=== PATIENT | female | born 1985 | race Caucasian/White ===

== ENCOUNTER 2016-07-26 08:52 | Inpatient (IN) | payer MEDICAID ==
[2016-07-26 09:11] VITALS: BMI 23.2
[2016-07-26] MEDS ORDERED: Lactated Ringer's 1,000 ML IV SCH (09:15)
--- NOTE | 2016-07-26 09:20 | OBADHP ---
Datetime: 07/26/2016 09:13 Admit Comment, IP Provider: at 38+weeks came with c/o ctxs started at 3 am, 8/10, no vb, lof=fm . obhx 1 x navs pmh den med pnv all nkda psh den soch denies ve 4-5/80/-1 a/p at 38+weeks in labor admit to l_d npo/ivf labs pain management cont clyde and efm anticipate Pelvic Type - PN: Adequate Extremities - PN: Normal Abdomen - PN: Normal Back - PN: Normal Breast - PN: Normal Lungs - PN: Normal Heart - PN: Normal Thyroid - PN: Normal Neurologic - PN: Normal HEENT - PN: Normal General - PN: Normal FHR - Baseline A Provider: 130 Contraction Comments Provider: q1-5 Comments, ACOG Physical Exam: gravid,non tender ext no edema,no calf ten ve 4-5/70/-2 IP Hx Assessment: The History has been Reviewed and is Current Vital Signs Provider: Reviewed; Within Normal Limits IP Chief Complaint: Uterine contractions NICHD Variability Prov Fetus A: Moderate 6-25bpm NICHD Accel Fetus A IP Provider: 15X15 FHR Category Provider Fetus A: Category I Dilatation, Provider: 5 Effacement, Provider: 80 Station, Provider: -1 Genitourinary Exam: Normal DTRs - PN: Normal EGA AdmitDate IP: 38.4 IP Adm Impression: Term, intrauterine ; Active labor IP Admit Plan: Admit to unit; Initiate labor protocol
[2016-07-26] MEDS ORDERED: Oxytocin 30 UNIT 30 UNITS/500 ML BAG IV PRN (09:22)
[2016-07-26 09:41] LABS: BASO # 0.1 K/uL (0.0-0.2); BASO % 0.6 % (0.0-2.0); EOS # 0.2 K/uL (0.0-0.7); EOS % 1.3 % (0.0-4.0); HEMATOCRIT 34.2 % (34.0-47.0); LYMPH # 2.2 K/uL (1.0-4.3); LYMPH % 17.9 % (20.0-40.0); MEAN CELL VOLUME 80.6 fL (81.0-99.0); MEAN CORPUSCULAR HEMOGLOBIN 25.2 pg (27.0-31.0); MEAN CORPUSCULAR HGB CONC 31.3 g/dL (33.0-37.0); MEAN PLATELET VOLUME 8.2 fL (7.2-11.7); MONO # 1.1 K/uL (0.0-0.8); MONO % 9.1 % (0.0-10.0); RED CELL DISTRIBUTION WIDTH 16.8 % (11.5-14.5); WHITE BLOOD COUNT 12.5 K/uL (4.8-10.8)
[2016-07-26 09:48] LABS: CHLORIDE 106 mmol/L (98-107); POTASSIUM 3.7 mmol/L (3.6-5.2); SODIUM 137 mmol/L (132-148)
[2016-07-26 09:50] LABS: ALB/GLOB RATIO 1.1 (1.0-2.1); ALKALINE PHOSPHATASE 163 U/L (38-126); ALT/SGPT 19 U/L (9-52); AST/SGOT 19 U/L (14-36); BILIRUBIN,TOTAL 0.5 mg/dL (0.2-1.3); BLOOD UREA NITROGEN 5 mg/dL (7-17); CARBON DIOXIDE 20 mmol/L (22-30); GFR AFRICAN-AMERICAN > 60; TOTAL PROTEIN 6.5 g/dL (6.3-8.3)
[2016-07-26 09:51] LABS: CALCIUM 8.6 mg/dl (8.6-10.4); GLUCOSE,RANDOM 82 mg/dL (65-105)
[2016-07-26 09:52] LABS: RBC URINE 2 /hpf (0-3); URINE BILIRUBIN NEGATIVE (NEGATIVE); URINE BLOOD 1+ (NEGATIVE); URINE COLOR Yellow (YELLOW); URINE GLUCOSE (UA) NORMAL (Normal); URINE KETONE NEGATIVE (NEGATIVE); URINE LEUKOCYTE ESTERASE NEG Leu/uL (Negative); URINE PROTEIN NEGATIVE (NEGATIVE); URINE UROBILINOGEN NORMAL mg/dL (0.2-1.0); WBC URINE 2 /hpf (0-5)
[2016-07-26] MEDS ORDERED: Oxytocin 30 UNIT 30 UNITS/500 ML BAG IV ONE (10:01)
--- NOTE | 2016-07-26 11:10 | OBPN ---
Datetime: 07/26/2016 11:09 IP Progress Impression: Normal progression of labor IP Procedures: Sterile Vag Exam IP Progress Plan: Continue present management Contraction Comments Provider: q1-3 FHR - Baseline A Provider: 120 IP Progress Note Comment: pt was examined at bed side ve fd/100/0 anticipate NICHD Variability Prov Fetus A: Moderate 6-25bpm Dilatation, Provider: 10 Effacement, Provider: 100 Station, Provider: 0 Datetime: 07/26/2016 09:13 IP Informed Consent Obtain: Vaginal Delivery Vital Signs Provider: Reviewed; Within Normal Limits NICHD Accel Fetus A IP Provider: 15X15 FHR Category Provider Fetus A: Category I
[2016-07-26] MEDS ORDERED: Oxycodone/Acetaminophen 5/325 mg Tab PO PRN (11:12)
--- NOTE | 2016-07-26 11:12 | OBDS ---
DELIVERY PERSONNEL Delivery Doctor: Marcos Proctor MD (Annotations: Data stored by [facility] on behalf of user) MATERNAL INFORMATION Estimated Blood Loss (ml): 200 Maternal Complications: None (Annotations: Data stored by [facility] on behalf of user) Provider Comments: baby deliverd in eusebio. endometrium clean no complication. LABOR SUMMARY EDC: 08/05/2016 00:00 No. Babies in Womb: 1 Attempted: No Labor Anesthesia: None LABOR INFORMATION Onset of Labor: 07/26/2016 07:00 Complete Dilatation: 07/26/2016 10:35 Oxytocin: Augmentation Group B Beta Strep: Negative Steroids Given: None Reason Steroids Not Administered: Not Applicable MEMBRANES Membranes Rupture Method: Spontaneous Rupture of Membranes: 07/26/2016 10:49 Length of Rupture (hrs): 0.25 Amniotic Fluid Color: Clear Amniotic Fluid Amount: Moderate Amniotic Fluid Odor: Normal STAGES OF LABOR Stage 1 hrs: 3 Stage 1 min: 35 Stage 2 hrs: 0 Stage 2 min: 29 Stage 3 hrs: 0 Stage 3 min: 2 Total Time in Labor hrs: 4 Total Time in Labor min: 6 VAGINAL DELIVERY Episiotomy: None Laceration Extension: N/A Laceration Type: None Sponge Count Correct: N/A Sharps Count Correct: N/A BABY A INFORMATION Delivery Date/Time: 07/26/2016 11:04 Method of Delivery: Vaginal Born in Route : No : N/A Forceps: N/A Vacuum Extraction: N/A Shoulder Dystocia : No SHOULDER DYSTOCIA BABY A Infant Delivery Date/Time: 07/26/2016 11:04 PRESENTATION/POSITION BABY A Presentation: Cephalic Cephalic Presentation: Vertex Vertex Position: Left Occipital Anterior Breech Presentation: N/A PLACENTA INFORMATION BABY A Placenta Delivery Time : 07/26/2016 11:06 Placenta Method of Delivery: Spontaneous Placenta Status: Delivered INFORMATION BABY A Gestational Age at Delivery: 38.0 Gestational Status: Term IDENTIFICATION/MEDS BABY A ID Band Number: [id number] ID Band Location: Left Leg; Left Arm Sensor Applied: Yes Sensor Number: [id number] Sensor Location : Cord Clamp WEIGHT/LENGTH BABY A Birthweight (gms): 3260 Infant Weight (lb): 7 Weight (oz): 3 CORD INFORMATION BABY A Nuchal Cord : N/A Cord Blood Taken: Yes Suction: Mouth; Nose
[2016-07-26] MEDS ORDERED: Oxytocin 30 UNIT 30 UNITS/500 ML BAG IV SCH (11:45)
[2016-07-27 08:36] LABS: HEMATOCRIT 32.8 % (34.0-47.0); MEAN CELL VOLUME 81.7 fL (81.0-99.0); MEAN CORPUSCULAR HEMOGLOBIN 25.8 pg (27.0-31.0); MEAN CORPUSCULAR HGB CONC 31.6 g/dL (33.0-37.0); MEAN PLATELET VOLUME 8.4 fL (7.2-11.7); WHITE BLOOD COUNT 14.2 K/uL (4.8-10.8)
--- NOTE | 2016-07-27 11:29 | OBPPN ---
Datetime: 07/27/2016 11:26 PP Pain Prov: Within normal limits PP Nausea Prov: Denies PP Flatus Prov: Yes PP BM Prov: No PP Heart Prov: Normal PP Lungs Prov: Normal PP Abdomen/Uterus Prov: Normal PP Lochia Prov: Normal PP CVA Tenderness Prov: Normal PP Extremities Prov: Normal PP C/S Incision Prov: Not Applicable PP Progress Prov: Normal PP Impression Prov: Normal progression PP Plan Prov: Continue present management PP Progress Note Prov: S-patient reports pain is adequately controlle.dshe denies nausea, vomiting, headache, chest pain, shortnes sof breath, numbness or tingling in hands and feet O-VSS Afebrile Fundus firm and below umbilcuus extremitie sno calf tenderness A/P Patient s/p vaginal dleivery ppd 1 doing well -continue routine care Vital Signs Provider PP: Reviewed; Within Normal Limits
[2016-07-28 08:49] VITALS: BP 99/64; PULSE 77; RESP 18; TEMP 97.1; O2SAT 99
--- NOTE | 2016-07-28 19:29 | OBDCSUM ---
Datetime: 07/28/2016 11:07 Discharged to, Provider: Home Follow up at, Provider: MAURO Disch Instr Activity: Normal activity; May be up to bathroom; May be up for meals; May Shower Disch Instr Diet: Regular Discharge Diet restrict Prov: none Discharge Diagnosis, Provider: Term Delivered Discharge Time: 07/28/2016 12:00 Follow up in weeks, Provider: 6 weeks Disch Referrals: None Contraception discussed, Prov: Yes Disch Activity Restrictions: No exercising; No lifting; No driving; No sexual activity; Nothing in v agina - [place], tampons, douche Discharge Diagnosis Prov Other: Anemia Contraception counseling Contraception after Delivery: Depo-Provera
--- NOTE | 2016-07-28 19:30 | OBPPN ---
Datetime: 07/28/2016 19:21 PP Pain Prov: Within normal limits PP Nausea Prov: Denies PP Flatus Prov: Yes PP BM Prov: Yes PP Breasts Prov: Not Done PP Heart Prov: Normal PP Lungs Prov: Normal PP Abdomen/Uterus Prov: Normal PP Lochia Prov: Normal PP Vulva/Perineum Prov: Normal PP CVA Tenderness Prov: Normal PP Extremities Prov: Normal PP C/S Incision Prov: Not Applicable PP Progress Prov: Normal PP Comments Phys Exam Prov: Skin: warm, dry, intact Breasts: small, symmetric. no cracked nipples Abdomen: soft, firm, mobile, non tender. Fundus 18 weeks. Mild lochia rubra All other systems reviewed and are negative PP Impression Prov: Normal progression PP Plan Prov: Discharge PP Progress Note Prov: Patient seen and evaluated earlier this morning: received in bed, happy to be going home. Denies dizziness, lightheadedness, palpitations, chest pain P.E.: as above. Small, in NAD. Awake, alert, oriented to time, person and place. Pleasant and coop erative. - H/H PPD#1 10.4/32.8. Rh(+) Assessment: PPD#2 31 yo P2, S/P at term. Afebrile, vital signs stable. Anemia noted; asymptoma tic, hemodynamically stable. Interested in the "injection" for contraception. Clinically stable. Plan: 1) Discharge home 2) See full discharge instructions Vital Signs Provider PP: Reviewed; Within Normal Limits
== END 2016-07-28 12:00 | disposition home or self-care (01) | DRG 373 ==
LOC: C.EROB 08:52 → C.4D 09:11 → C.4M 12:30
PROVIDERS: ADMIT Obstetrics & Gynecology; ATTEND Obstetrics & Gynecology
PROC: 10E0XZZ Delivery of Products of Conception, External Approach (ICD-10-PCS; principal; 2016-07-26)
DX: O99.02 Anemia complicating childbirth (principal); D64.9 Anemia, unspecified; Z37.0 Single live birth; Z3A.38 38 weeks gestation of pregnancy

== ENCOUNTER 2018-06-30 21:45 | Inpatient (IN) | payer MEDICAID ==
[2018-06-30 22:40] VITALS: BMI 25.4
[2018-06-30] MEDS ORDERED: Lactated Ringer's 1,000 ML IV ONE (22:41)
[2018-06-30] MEDS ORDERED: Lactated Ringer's 1,000 ML IV SCH (22:45)
--- NOTE | 2018-06-30 23:05 | OBHP ---
Datetime: 06/30/2018 22:44 IP Adm Impression: Term, intrauterine ; Active labor IP Adm Impression Other: High leak IP Admit Plan: Admit to unit; Initiate labor protocol Admit Comment, IP Provider: SILVIO tracyaotr ID [id number] 32 y.o. , LMP 09/28/17, HANS 07/03/18, EGA 39w 4d c/o LOF at 2055 hours, clear. (+) abdominal cramps onset 0500 hours, intermittent throughout the day. stronger Ctx at 1500 hours; pain scale now , 4/10. No FM siince LOF (at this, heart tones were pointed out to the patient heart tone s. She affirmed she did hear her baby's heart beat). care: [facility] - denies any issues P OB: x 2, both at [facility]; both males. 08/2013, 6lb 15oz. 07/2016, 7lb 15 oz. 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 Denies STIs, abnormal pap, myomata PMH: denies PSH: denies NKDA Meds: PNV - last took 1 week ago, or maybe Tuesday Soc Hx: denies tobacco, illicit drug or EtOH use. With FOB x > 8years; lives with him andher sons. 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 no med issues. Father alive - unk. No known fam h/o cancer P.E.: as above. Petite, in NAD. Awake, alert, oriented to time, person and place. Asessment: 32 y.o. P2, 39w 4d, near end of Stage 1 of labor. Forebag palpated. GBS (-). Category 1 tracing. Patient is clinically stable. Plan: 1) Admit 2) NPO 3) Admission labs 4) Continuous EFM 5) Pitocin 6) Anticipate vaginal delivery Pelvic Type - PN: Adequate Extremities - PN: Normal Abdomen - PN: Normal Back - PN: Normal Breast - PN: Not Done Lungs - PN: Normal Heart - PN: Normal Thyroid - PN: Not Done Neurologic - PN: Normal HEENT - PN: Normal General - PN: Normal Presentation-Admit: Vertex FHR - Baseline A Provider: 125 Contraction Comments Provider: 10-12 Comments, ACOG Physical Exam: Abdomen: Gravid. Firm with contractions. Fundal height 37.5cm All other systems reviewed and are negative Gestation - Est Wks by US: 39w 4d IP Hx Assessment: The History has been Reviewed and is Current EGA AdmitDate IP: 39.4 IP Indication for Induction: Not Applicable IP Chief Complaint: Uterine contractions; Suspected ruptured membranes NICHD Variability Prov Fetus A: Moderate 6-25bpm NICHD Accel Fetus A IP Provider: 15X15 FHR Category Provider Fetus A: Category I NICHD Decel Fetus A IP Provider: None Dilatation, Provider: 9 Effacement, Provider: 90 Station, Provider: -3 Genitourinary Exam: Normal DTRs - PN: Not Done
[2018-06-30 23:12] LABS: BASO % 0.4 % (0.0-2.0); EOS # 0.1 K/uL (0.0-0.7); EOS % 1.6 % (0.0-4.0); LYMPH # 2.1 K/uL (1.0-4.3); LYMPH % 24.9 % (20.0-40.0); MEAN CELL VOLUME 81.9 fL (81.0-99.0); MEAN CORPUSCULAR HEMOGLOBIN 27.4 pg (27.0-31.0); MEAN CORPUSCULAR HGB CONC 33.5 g/dL (33.0-37.0); MEAN PLATELET VOLUME 8.1 fL (7.2-11.7); MONO % 11.1 % (0.0-10.0); NEUT # 5.3 K/uL (1.8-7.0); NRBC % 0.1 % (0.0-2.0); RBC 4.02 Mil/uL (3.80-5.20); RED CELL DISTRIBUTION WIDTH 14.9 % (11.5-14.5); WHITE BLOOD COUNT 8.6 K/uL (4.8-10.8)
[2018-06-30 23:16] LABS: SQUAMOUS EPITHIAL 5 /hpf (0-5); URINE BACTERIA RARE (<OCC); URINE BILIRUBIN NEGATIVE (NEGATIVE); URINE BLOOD NEGATIVE (NEGATIVE); URINE CLARITY Hazy (Clear); URINE COLOR Yellow (YELLOW); URINE GLUCOSE (UA) NORMAL (Normal); URINE LEUKOCYTE ESTERASE NEG Leu/uL (Negative); URINE PROTEIN NEGATIVE (NEGATIVE); URINE UROBILINOGEN NORMAL mg/dL (0.2-1.0)
[2018-06-30 23:22] LABS: ALB/GLOB RATIO 1.2 (1.0-2.1); ALBUMIN 3.5 g/dL (3.5-5.0); BLOOD UREA NITROGEN 8 mg/dL (7-17); GFR NON-AFRICAN AMERICAN > 60
[2018-06-30 23:24] LABS: ALT/SGPT 31 U/L (9-52); AST/SGOT 48 U/L (14-36); BARBITURATES, UR NEGATIVE (NEGATIVE); BENZODIAZEPINES, UR NEGATIVE (NEGATIVE); OPIATES, UR NEGATIVE (NEGATIVE); PHENCYCLIDINE, UR NEGATIVE (NEGATIVE)
[2018-06-30] MEDS ORDERED: Oxytocin 30 UNIT in NS 500 ml 30 UNITS/500 ML BAG IV ONE ×2 (23:27→23:38)
[2018-07-01] MEDS ORDERED: Oxycodone/Acetaminophen 5/325 mg Tab PO PRN (03:21)
[2018-07-01] MEDS ORDERED: Benzocaine/Menthol 20%-0.5% Topical Spray (60 ml) TOP PRN (03:21)
--- NOTE | 2018-07-01 03:48 | OBDS ---
DELIVERY PERSONNEL Delivery Doctor: Ta Shultz MD Coal Cutter: Ashley Chawla RN MATERNAL INFORMATION Delivery Anesthesia: None Medications in Delivery: PITOCIN Estimated Blood Loss (ml): 300 Placenta Cultured: No Maternal Complications: None RN Comments: LIVE BABY BOY SKIN TO SKIN DONE Provider Comments: live female , CORINE position over intact perineum. Infnat placed on moth er's abodmen. Delayed cord clamping. Spontaneous deliveyr of placenta - grossly normal; 3 VC Uterine exploration performed; uterus firm and contracted Inspection of cervix, vagina and perineum performed - no lacerations Mother and bonding, both in stable condition EBL 300 mL 's 9/9 Weight 7lb 80z LABOR SUMMARY EDC: 07/03/2018 00:00 No. Babies in Womb: 1 Attempted: No Labor Anesthesia: None LABOR INFORMATION Reason for Induction: Not Applicable Onset of Labor: 06/30/2018 15:00 Complete Dilatation: 07/01/2018 01:30 Oxytocin: Augmentation Group B Beta Strep: Negative Steroids Given: None Reason Steroids Not Administered: Not Applicable MEMBRANES Membranes Rupture Method: Spontaneous Rupture of Membranes: 06/30/2018 20:55 Length of Rupture (hrs): 4.80 Amniotic Fluid Color: Clear Amniotic Fluid Amount: Large Amniotic Fluid Odor: Normal STAGES OF LABOR Stage 1 hrs: 10 Stage 1 min: 30 Stage 2 hrs: 0 Stage 2 min: 13 Stage 3 hrs: 0 Stage 3 min: 4 Total Time in Labor hrs: 10 Total Time in Labor min: 47 VAGINAL DELIVERY Episiotomy: None Laceration Extension: N/A Laceration Type: None Laceration Repair: Not Applicable Initial Vag Sponge Count: 10 Final Vag Sponge Count: 10 Initial Vag Sharps Count: 0 Final Vag Sharps Count: 0 Sponge Count Correct: Yes; Vaginal Sweep Performed Sharps Count Correct: N/A BABY A INFORMATION Delivery Date/Time: 07/01/2018 01:43 Method of Delivery: Vaginal Born in Route : No : N/A Forceps: N/A Vacuum Extraction: N/A Shoulder Dystocia : No SHOULDER DYSTOCIA BABY A Delivery Date/Time: 07/01/2018 01:43 PRESENTATION/POSITION BABY A Presentation: Cephalic Cephalic Presentation: Vertex Vertex Position: Left Occipital Anterior Breech Presentation: N/A PLACENTA INFORMATION BABY A Placenta Delivery Time : 07/01/2018 01:47 Placenta Method of Delivery: Spontaneous Placenta Status: Delivered SCORES BABY A Heart Rate 1 min: >100 bpm Resp Effort 1 min: Good Cry Reflex Irritability 1 min: Cough or Sneeze or Pulls Away Muscle Tone 1 min: Active Motion Color 1 min: Body [place], Extremities Blue Resuscitation Effort 1 min: Tactile Stimulation SCORE 1 MIN: 9 Heart Rate 5 min: >100 bpm Resp Effort 5 min: Good Cry Reflex Irritability 5 min: Cough or Sneeze or Pulls Away Muscle Tone 5 min: Active Motion Color 5 min: Body [place], Extremities Blue Resuscitation Effort 5 min: Tactile Stimulation SCORE 5 MIN: 9 INFANT INFORMATION BABY A Gestational Age at Delivery: 39.5 Gestational Status: Term Outcome : Liveborn Infant Condition : Stable Infant Sex: Male IDENTIFICATION/MEDS BABY A ID Band Number: [id number] ID Band Location: Left Leg; Left Arm Sensor Applied: Yes Sensor Number: [id number] Sensor Location : Cord Clamp Vitamin K Given : Not Given Erythromycin Given: Not Given WEIGHT/LENGTH BABY A Birthweight (gms): 3410 Infant Weight (lb): 7 Infant Weight (oz): 8 Infant Length Inches: 20.00 (Annotations: Data stored by [facility] on behalf of user) Infant Length cms: 50.8 CORD INFORMATION BABY A No. Cord Vessels: 3 Nuchal Cord : N/A Cord Blood Taken: Yes Suction: Mouth ASSESSMENT BABY A Infant Complications: None Physical Findings at Delivery: Within Normal Limits Respirations: Appears Normal Aerial Hurricane [employer]/ALS Called : No Care By: PRASHANTH NOVA Transferred To: Remains with Mother
[2018-07-01 08:12] LABS: BASO # 0.1 K/uL (0.0-0.2); BASO % 0.4 % (0.0-2.0); EOS % 0.3 % (0.0-4.0); HEMOGLOBIN 11.3 g/dL (11.0-16.0); LYMPH # 1.7 K/uL (1.0-4.3); LYMPH % 12.3 % (20.0-40.0); MEAN CELL VOLUME 82.7 fL (81.0-99.0); MEAN CORPUSCULAR HEMOGLOBIN 27.2 pg (27.0-31.0); MEAN CORPUSCULAR HGB CONC 32.9 g/dL (33.0-37.0); MEAN PLATELET VOLUME 8.1 fL (7.2-11.7); MONO # 1.1 K/uL (0.0-0.8); NEUT # 11.1 K/uL (1.8-7.0); RBC 4.16 Mil/uL (3.80-5.20); RED CELL DISTRIBUTION WIDTH 15.1 % (11.5-14.5)
[2018-07-01 08:16] LABS: WHITE BLOOD COUNT 14.1 K/uL (4.8-10.8)
--- NOTE | 2018-07-01 10:09 | OBPPN ---
Datetime: 07/01/2018 10:06 PP Pain Prov: Within normal limits PP Comments Phys Exam Prov: Pelvic: moderate brisk vaginal bleeding - 30cc clots evacuated (+) RAGHAV a radhames fundus firm on bimanual examination PP Plan Prov: Continue present management PP Progress Note Prov: s/p NSD PPD#0 RAGHAV Atony/moderate vaginal bleeding- now resolved after evacuation of clots at bedside Methergine 0.2mg IM q8 hours x 24 hours ordered Continue to monitor closely
[2018-07-01] MEDS: Multiple Vitamins Tab PO SCH (10:36)
[2018-07-02 00:22] VITALS: O2SAT 99
--- NOTE | 2018-07-02 08:05 | OBPPN ---
Datetime: 07/02/2018 08:02 PP Pain Prov: Within normal limits PP Abdomen/Uterus Prov: Normal PP Lochia Prov: Normal PP Impression Prov: Normal progression PP Plan Prov: Continue present management PP Progress Note Prov: A/P: s/p PPD #1 - stable, afebrile - + breat/bottle - continue pp mgmt IP PP Procedures: None Vital Signs Provider PP: Reviewed; Within Normal Limits
[2018-07-02 09:02] LABS: BASO # 0.1 K/uL (0.0-0.2); BASO % 0.5 % (0.0-2.0); EOS # 0.3 K/uL (0.0-0.7); EOS % 3.1 % (0.0-4.0); HEMOGLOBIN 12.3 g/dL (11.0-16.0); LYMPH % 27.8 % (20.0-40.0); MEAN CELL VOLUME 83.1 fL (81.0-99.0); MEAN CORPUSCULAR HEMOGLOBIN 27.7 pg (27.0-31.0); MEAN CORPUSCULAR HGB CONC 33.3 g/dL (33.0-37.0); MEAN PLATELET VOLUME 8.2 fL (7.2-11.7); MONO # 1.1 K/uL (0.0-0.8); MONO % 10.1 % (0.0-10.0); NEUT # 6.3 K/uL (1.8-7.0); NEUT % 58.5 % (50.0-75.0); NRBC % 0.1 % (0.0-2.0); RBC 4.44 Mil/uL (3.80-5.20); RED CELL DISTRIBUTION WIDTH 15.2 % (11.5-14.5); WHITE BLOOD COUNT 10.8 K/uL (4.8-10.8)
[2018-07-02] MEDS: Multiple Vitamins Tab PO SCH (10:15)
[2018-07-03] MEDS: Multiple Vitamins Tab PO SCH (09:36)
--- NOTE | 2018-07-03 12:38 | OBDCSUM ---
Datetime: 07/03/2018 11:42 Discharged to, Provider: Home Follow up at, Provider: MAURO Disch Instr Activity: Normal activity; May be up to bathroom; May be up for meals; May Shower Disch Instr Diet: Regular Discharge Instructions, Provider: Routine instructions given Discharge Diagnosis, Provider: Term Delivered Discharge Time: 07/03/2018 12:30 Follow up in weeks, Provider: 6 weeks Contraception discussed, Prov: No Disch Activity Restrictions: No sexual activity; Nothing in vagina - [place], tampons, douche
[2018-07-03 17:16] VITALS: BP 102/69; PULSE 85; RESP 18; TEMP 98.3
== END 2018-07-03 12:30 | disposition home or self-care (01) | DRG 373 ==
LOC: C.EROB 21:45 → C.4D 22:30 → C.4M 07-01 03:30
PROVIDERS: ADMIT Obstetrics & Gynecology; ATTEND Obstetrics & Gynecology
PROC: 10E0XZZ Delivery of Products of Conception, External Approach (ICD-10-PCS; principal; 2018-06-30)
DX: O80 Encounter for full-term uncomplicated delivery (principal); Z3A.39 39 weeks gestation of pregnancy; Z37.0 Single live birth